=== PATIENT | female | born 1970 | race Caucasian/White ===

== ENCOUNTER 2017-06-10 09:45 | Observation (INO) | payer OTHER ==
--- NOTE | 2017-06-10 09:53 | CPEKG ---
Heart Rate: 65 RR Interval: 923 P-R Interval: 184 QRSD Interval: 78 QT Interval: 392 QTC Interval: 408 P [place]: 53 QRS [place]: 1 T Wave [place]: 33 EKG Severity - NORMAL ECG - EKG Impression: SINUS RHYTHM Electronically Signed By: Benigno Akers 10-Jun-2017 15:07:31
[2017-06-10] MEDS ORDERED: NS 500 ML IV ONE (09:54)
[2017-06-10] MEDS ORDERED: ASPIRIN 81 MG CHEWABLE TAB PO ONE (09:54)
[2017-06-10 10:22] LABS: PLATELET COUNT 264 10^3/uL (150-400)
--- NOTE | 2017-06-10 10:26 | EDPHY ---
H & P Time Seen by Provider: 06/10/17 09:52 HPI/ROS: HPI Chest pain. 47-year-old female by private vehicle with her . Her is an linux system administrator at the hospital. This patient has a history of hypertension. She has been taking Bystolic, 10 mg daily for this. She reports that she is still had a hard time controlling her blood pressure. She reports over the last 3 days she has had intermittent chest pain which she describes as an aching in her left upper chest which sometimes radiates up into the left jaw. She denies any associated shortness of breath. She and her have spoken with shingle weaver Dr. Marty Camarillo and Dr. Marcell Reyna who have been helping her with management of her hypertension. Recently her discussed her chest pain and there was a concern for a possible dissection process. I explained that we of course would consider this in our emergency department evaluation. I discussed getting a CT angiogram of her chest to evaluate for possible pulmonary embolism versus dissection process. They both endorse this plan. Her also tells me that she has been under a lot of stress this last month secondary to challenges with their son who is undergoing treatment for mental health issues. ROS: Constitutional: No fever, no chills. No weakness. Eyes: No discharge. No changes in vision. ENT: No sore throat. No nasal congestion or rhinorrhea. Respiratory: No cough. No shortness of breath. Cardiac: As above, no palpitations. Gastrointestinal: No abdominal pain, no vomiting, no diarrhea. Genitourinary: No hematuria. No dysuria or increased frequency with urination. Musculoskeletal: No back pain. No neck pain. No myalgias or arthralgias. Skin: No rashes. Neurological: No headache. No focal weakness or altered sensation. Past medical history: Hypertension, diskectomy, appendectomy. Social history: No smoking. Here with her . Drinks alcohol socially. Physical Exam: General Appearance: Alert, mildly anxious but no distress. This patient is responding to questions appropriately and in full sentences. This patient appears well-hydrated and well-nourished. Eyes: Pupils equal and round no pallor or injection. No lid edema, erythema or injection. Respiratory: There are no retractions, lungs are clear to auscultation with good air movement bilaterally. Cardiovascular: Regular rate and rhythm. No murmur. Gastrointestinal: Abdomen is soft and nontender, no masses, bowel sounds normal. No focal tenderness at McBurney's point. No Varma sign. Neurological: Motor sensory function is grossly intact. Cranial nerves are normal. Gait is normal. Skin: Warm and dry, no rashes. Musculoskeletal: Neck is supple and nontender. Extremities are symmetrical. No lower extremity edema. All joints range without pain or impingement. Psychiatric: No agitation. No depression. Database: EKG: EKG time is 950 a.m.; EKG shows a narrow complex normal sinus rhythm with a ventricular rate of 65. The WA, QRS, QT intervals are within normal limits. There are no ST-T wave changes indicative of ischemic or injury pattern. No evidence of right heart strain. Interpreted by me. Imaging: Chest x-ray AP portable; the cardiac mediastinal silhouette is unremarkable. No evidence of infiltrate or pneumothorax. No acute cardiopulmonary disease process noted. Interpreted by me. CT pulmonary angiogram; no evidence of pulmonary embolism or dissection process. Results were discussed with staff radiologist Dr. Dilip Tristan. Procedures: Emergency department course: Vital signs reviewed. She is moderately hypertensive. She was given 324 mg of chewed aspirin. As of 10:20 a.m., she currently denies any chest pain. EKG obtained and reviewed by myself. 11:05 a.m., patient re-evaluated. Resting comfortably at this time. No chest pain. Feeling much better. Results of emergency department workup discussed with and patient. CT angiogram of chest currently pending. Otherwise, this patient's workup has been unremarkable. Plan for PCU observation admission discussed. All of their questions were answered. They endorse. Hospitalist paged. 11:10 p.m., spoke with on-call hospitalist. Patient accepted for admission PCU observation. Patient's remaining emergency department course under my care uneventful. Patient admitted in stable and improved condition. 11:35 a.m., CT angiogram results discussed with patient and . Differential Diagnosis: The differential diagnosis on this patient includes but is not limited to acute coronary syndrome, pulmonary embolism, aortic dissection, esophageal spasm. This represents a partial list of diagnoses considered. These considerations are based on history, physical exam, past history, reassessment and diagnostic testing. Smoking Status: Never smoked Constitutional: Initial Vital Signs Temperature (C) 37 C 06/10/17 09:59 Heart Rate 66 06/10/17 09:59 Respiratory Rate 16 06/10/17 09:59 Blood Pressure 141/107 H 06/10/17 09:59 O2 Sat (%) 97 06/10/17 09:59 O2 Delivery Mode Room Air Allergies/Adverse Reactions: tree nut Allergy (Verified 06/10/17 12:08) Home Medications: Medication Instructions Recorded Estradiol [Estrace Vaginal (*)] 1 patti VG MWF@21 08/13/15 Componded Testosterone Crm 1 patti TP DAILY 06/10/17 Fluticasone Nasal [Flonase Nasal 1 sprays NASAL DAILY 06/10/17 [place] (RX)] Herbals/Supplements -Info Only 1 ea PO DAILY 06/10/17 Lisinopril [Zestril 20 mg (*)] 20 mg PO DAILY 06/10/17 Melatonin [Melatonin 3 MG (*)] 3 mg PO HS 06/10/17 Nebivolol HCl [Bystolic 5 mg (*)] 5 mg PO DAILY 06/10/17 Progesterone, Micronized 100 mg PO HS 06/10/17 [Progesterone] Medical Decision Making - Diagnostics Imaging Results: Imaging Impressions Chest X-Ray 06/10/17 09:55 Impression: Negative. Chest/Thorax CTA 06/10/17 10:39 Impression: 1. No acute findings in the chest. 2. Mild narrowing of the right subclavian vein. 3. Additional findings as above. Findings discussed with Benigno Akers MD on 06/10/2017 at 11:34. - Data Points Laboratory Results: Laboratory Results 06/10/17 09:55 06/10/17 09:55 06/10/17 06/10/17 06/10/17 09:55 09:55 09:55 WBC 5.92 10^3/uL 10^3/uL (3.80-9.50) RBC 4.41 10^6/uL 10^6/uL (4.18-5.33) Hgb 12.1 g/dL L g/dL (12.6-16.3) Hct 35.8 % L % (38.0-47.0) MCV 81.2 fL L fL (81.5-99.8) MCH 27.4 pg L pg (27.9-34.1) MCHC 33.8 g/dL g/dL (32.4-36.7) RDW 12.5 % % (11.5-15.2) Plt Count 264 10^3/uL 10^3/uL (150-400) MPV 9.0 fL fL (8.7-11.7) Neut % (Auto) 56.5 % % (39.3-74.2) Lymph % (Auto) 32.9 % % (15.0-45.0) [place] % (Auto) 6.9 % % (4.5-13.0) Eos % (Auto) 1.5 % % (0.6-7.6) Baso % (Auto) 1.7 % % (0.3-1.7) Nucleat RBC Rel Count 0.3 % H % (0.0-0.2) Absolute Neuts (auto) 3.34 10^3/uL 10^3/uL (1.70-6.50) Absolute Lymphs (auto) 1.95 10^3/uL 10^3/uL (1.00-3.00) Absolute Monos (auto) 0.41 10^3/uL 10^3/uL (0.30-0.80) Absolute Eos (auto) 0.09 10^3/uL 10^3/uL (0.03-0.40) Absolute Basos (auto) 0.10 10^3/uL 10^3/uL (0.02-0.10) Absolute Nucleated RBC 0.02 10^3/uL H 10^3/uL (0-0.01) Immature Gran % 0.5 % % (0.0-1.1) Immature Gran # 0.03 10^3/uL 10^3/uL (0.00-0.10) PT 13.0 SEC SEC (12.0-15.0) INR 0.96 (0.83-1.16) APTT 28.2 SEC SEC (23.0-38.0) Sodium 140 mEq/L mEq/L (135-145) Potassium 4.1 mEq/L mEq/L (3.5-5.2) Chloride 103 mEq/L mEq/L (97-110) Carbon Dioxide 26 mEq/l mEq/l (22-31) Anion Gap 11 mEq/L mEq/L (8-16) BUN 6 mg/dL L mg/dL (7-23) Creatinine 0.8 mg/dL mg/dL (0.6-1.0) Estimated GFR > 60 Glucose 93 mg/dL mg/dL (70-100) Calcium 9.8 mg/dL mg/dL (8.5-10.4) Creatine Kinase 35 IU/L IU/L (0-156) CK-MB (CK-2) Fraction 0.23 ng/mL ng/mL (0.00-3.19) Troponin I < 0.012 ng/mL ng/mL (0.000-0.034) Medications Given: Discontinued Medications Aspirin (Aspirin) 324 mg PO EDNOW ONE Stop: 06/10/17 09:55 Last Admin: 06/10/17 10:06 Dose: 324 mg Sodium Chloride (Ns) 500 mls @ 1,000 mls/hr IV EDNOW ONE PRN Reason: Protocol Stop: 06/10/17 10:23 Last Admin: 06/10/17 10:08 Dose: 500 mls Departure - Departure Disposition: [facility] Inpatient Acute Clinical Impression: Chest pain
[2017-06-10 10:29] LABS: INR 0.96 (0.83-1.16)
[2017-06-10 10:32] LABS: CREATINE KINASE 35 IU/L (0-156)
[2017-06-10] MEDS ORDERED: IOPAMIDOL (ISOVUE 370) 100 ML BTL IV ONE (10:52)
--- NOTE | 2017-06-10 11:57 | ASMTLACE ---
JUANY Acuity / Level of Answers: Yes Care: Did the patient have an inpatient admission? # of Emergency department Answers: 1-2 visits in the last 6 months Score: 4 Date Signed: 06/10/2017 11:56 AM Electronically Signed By:Keesha Carrington RN
[2017-06-10] MEDS ORDERED: ACETAMINOPHEN 325 MG TAB PO PRN (12:58)
[2017-06-10] MEDS ORDERED: ONDANSETRON DISINTEGRATING 4 MG TAB PO PRN (12:58)
[2017-06-10] MEDS ORDERED: ONDANSETRON 4 MG/2 ML VIAL IVP PRN (12:58)
--- NOTE | 2017-06-10 16:24 | GHP ---
[f rep st] HISTORY AND PHYSICAL DATE OF ADMISSION: 06/10/2017 CHIEF COMPLAINT: Chest pain. HISTORY OF PRESENT ILLNESS: This is a 47-year-old female with a history of hypertension. She has be en under a significant amount of stress lately and had to restart her Bystolic several weeks ago due to elevated blood pressure. She is having some issues with her son who is 13 years old. It has been particularly stressful the last several days and throughout the night and especially this morning. Patient developed left-sided chest pain which she describes as electric feeling with some radiation i nto the left arm and left jaw. She has not had pain like this before. She has had no shortness of b reath. No diaphoresis, nausea or vomiting. Pain is resolved currently. She has had a stress test a few years ago which was negative. She does not remember having an echocardiogram. She denies any o rthopnea, PND or lower extremity edema. No fevers or chills. REVIEW OF SYSTEMS: A 10-point review of systems was obtained, otherwise has been negative. PAST MEDICAL HISTORY: Hypertension. MEDICATIONS: Reviewed. SOCIAL HISTORY: No smoking. . Under a significant amount of stress. FAMILY HISTORY: Great grandfather had coronary disease. There is a history of atrial fibrillation a nd hypertension in the family. PHYSICAL EXAMINATION: VITAL SIGNS: Afebrile, blood pressure is 147/76, heart rate 66, oxygen satura tion 99% on room air. GENERAL: The patient is well developed, no apparent distress. HEENT: [place] bindu sclerae. Extraocular muscles intact. Moist mucous membranes. NECK: Supple. No thyromegaly. LUNGS: Good effort. Clear to auscultation bilaterally. CARDIOVASCULAR: Regular rate and rhythm. No murmurs, rubs, or gallops. ABDOMEN: Positive bowel sounds. Soft, nontender, nondistended. No h epatosplenomegaly. EXTREMITIES: No clubbing, cyanosis, or edema. SKIN: Without rash, warm, intact . NEUROLOGIC: Oriented x3. Moving all 4 extremities equally. PSYCHIATRIC: Normal affect. LABORATORY STUDIES: CBC is essentially normal. Troponins are negative x2. EKG personally reviewed and interpreted shows a normal sinus rhythm with no ischemic changes. CT scan of the chest shows no dissection or pulmonary embolism. ASSESSMENT: This is a 47-year-old female presenting with chest pain. 1. Chest pain, probably noncardiac. She is a relatively young age with minimal risk factors other t beckett hypertension which seems to be more stress induced. She does see the ornamental iron worker regularly and they will be consulting. I will get serial troponins, echocardiogram and will have Cardiology decide what type of stress testing they want. 2. Hypertension. Symptoms do not seem to correlate with elevated blood pressure. She was having a significant elevated blood pressure previously but no really chest pain. Her blood pressure is a lit tle bit uncontrolled but would not make any change with her medications currently. /[id number]/MODL
--- NOTE | 2017-06-10 16:25 | PDCARCONS ---
Cardiology Consult Reason for Consult: Chest pain Chief Complaint: Chest pain Requesting Physician: Hospitalist Team History of Present Illness: Patient is a 47 y/o female with about two years of HTN (on Bystolic and Lisinopril), who presented to [facility] ER this morning after left sided chest pains with radiation into shoulder, neck, and jaw were noted. No history of HLP, CAD , or DM. No tobacco use/abuse. Current symptoms have been noted for the past three days, with more severe presentation noted this morning. There is a degree of stress at home with 13 year old son (adopted at one year) with recent threats of suicide, and brief admission to inpatient center for about 10 days. Things did not go too well according to patient and with respect to this admission. No PND has been noted. Exercise has dropped off with an elevation in stress. Sleep has been very poor. Appetite has also been poor. Respiratory rate in the ER was up to 22 per minute. At present, the patient is resting comfortably in her room. at bedside. There has been work up for the hypertension noted (renal artery angiography), but no coronary angiography. Remainder of the 12 point review of systems was unremarkable History Information - Allergies/Home Medication List Allergies/Adverse Reactions: tree nut Allergy (Verified 06/10/17 12:08) Home Medications: Estradiol [Estrace Vaginal (*)] 1 patti VG MWF@21 08/13/15 [Last Taken 06/08/17] Componded Testosterone Crm 1 patti TP DAILY 06/10/17 [Last Taken 06/09/17] Fluticasone Nasal [Flonase Nasal [place] (RX)] 1 sprays NASAL DAILY 06/10/17 [ Last Taken 06/09/17] Herbals/Supplements -Info Only 1 ea PO DAILY 06/10/17 [Last Taken Unknown] Lisinopril [Zestril 20 mg (*)] 20 mg PO DAILY 06/10/17 [Last Taken 06/10/17] Melatonin [Melatonin 3 MG (*)] 3 mg PO HS 06/10/17 [Last Taken Unknown] Nebivolol HCl [Bystolic 5 mg (*)] 5 mg PO DAILY 06/10/17 [Last Taken 06/10/17] Progesterone, Micronized [Progesterone] 100 mg PO HS 06/10/17 [Last Taken ] I have personally reviewed and updated: family history, medical history, social history, surgical history Past Medical History: - Past Medical History hypertension - Surgical History Reports: no pertinent surgical hx - Family History Positive for: non-pertinent - Social History Smoking Status: Never smoked Alcohol Use: Rarely Drug Use: None Cardiac History - Cardiac History Cardiac Risk Factors: hypertension (>140/90) Timing/Duration: Days Severity: severe Severity Scale: 8 Location: substernal, epigastric, shoulder Activities at Onset: emotional stress Modifying Factors: improves with: lying down, rest Associated Symptoms: chest pain, loss of appetite IRIS Risk Evaluation age greater or equal to 65: no greater or equal to 3 CAD risk factors: no known CAD(stenosis greater or eqaul to 50%): no ASA use in past 7 days: no severe angina(greater or equal to 2 episodes in 24hrs): no EKG ST changes greater or equal to 0.5mm: no positive cardiac marker: no Total Score: 0 IRIS Score: 4.7% risk Physical Exam Physical Exam: Temp Pulse Resp BP Pulse Ox 36.5 C 66 16 147/76 H 99 06/10/17 12:24 06/10/17 12:24 06/10/17 12:24 06/10/17 12:24 06/10/17 12:24 Constitutional: no apparent distress, appears nourished, not in pain Eyes: PERRL Ears, Nose, Mouth, Throat: moist mucous membranes, hearing normal, ears appear normal Cardiovascular: regular rate and rhythym, no murmur, rub, or gallop, pulses symmetric bilaterally, No JVD Peripheral Pulses: 2+: dorsalis-pedis (R), dorsalis-pedis (L) Respiratory: no respiratory distress, no rales or rhonchi, clear to auscultation Gastrointestinal: normoactive bowel sounds Skin: warm, No rash Musculoskeletal: full muscle strength Neurologic: AAOx3, sensation intact bilaterally, CN II-XII Intact Psychiatric: interacting appropriately, not anxious, not encephalopathic Lab and Imaging 06/10/17 09:55 06/10/17 09:55 WBC 5.92 10^3/uL (3.80-9.50) 06/10/17 09:55 RBC 4.41 10^6/uL (4.18-5.33) 06/10/17 09:55 Hgb 12.1 g/dL (12.6-16.3) L 06/10/17 09:55 Hct 35.8 % (38.0-47.0) L 06/10/17 09:55 MCV 81.2 fL (81.5-99.8) L 06/10/17 09:55 MCH 27.4 pg (27.9-34.1) L 06/10/17 09:55 MCHC 33.8 g/dL (32.4-36.7) 06/10/17 09:55 RDW 12.5 % (11.5-15.2) 06/10/17 09:55 Plt Count 264 10^3/uL (150-400) 06/10/17 09:55 MPV 9.0 fL (8.7-11.7) 06/10/17 09:55 Neut % (Auto) 56.5 % (39.3-74.2) 06/10/17 09:55 Lymph % (Auto) 32.9 % (15.0-45.0) 06/10/17 09:55 [place] % (Auto) 6.9 % (4.5-13.0) 06/10/17 09:55 Eos % (Auto) 1.5 % (0.6-7.6) 06/10/17 09:55 Baso % (Auto) 1.7 % (0.3-1.7) 06/10/17 09:55 Nucleat RBC Rel Count 0.3 % (0.0-0.2) H 06/10/17 09:55 Absolute Neuts (auto) 3.34 10^3/uL (1.70-6.50) 06/10/17 09:55 Absolute Lymphs (auto) 1.95 10^3/uL (1.00-3.00) 06/10/17 09:55 Absolute Monos (auto) 0.41 10^3/uL (0.30-0.80) 06/10/17 09:55 Absolute Eos (auto) 0.09 10^3/uL (0.03-0.40) 06/10/17 09:55 Absolute Basos (auto) 0.10 10^3/uL (0.02-0.10) 06/10/17 09:55 Absolute Nucleated RBC 0.02 10^3/uL (0-0.01) H 06/10/17 09:55 Immature Gran % 0.5 % (0.0-1.1) 06/10/17 09:55 Immature Gran # 0.03 10^3/uL (0.00-0.10) 06/10/17 09:55 PT 13.0 SEC (12.0-15.0) 06/10/17 09:55 INR 0.96 (0.83-1.16) 06/10/17 09:55 APTT 28.2 SEC (23.0-38.0) 06/10/17 09:55 Sodium 140 mEq/L (135-145) 06/10/17 09:55 Potassium 4.1 mEq/L (3.5-5.2) 06/10/17 09:55 Chloride 103 mEq/L (97-110) 06/10/17 09:55 Carbon Dioxide 26 mEq/l (22-31) 06/10/17 09:55 Anion Gap 11 mEq/L (8-16) 06/10/17 09:55 BUN 6 mg/dL (7-23) L 06/10/17 09:55 Creatinine 0.8 mg/dL (0.6-1.0) 06/10/17 09:55 Estimated GFR > 60 06/10/17 09:55 Glucose 93 mg/dL (70-100) 06/10/17 09:55 Calcium 9.8 mg/dL (8.5-10.4) 06/10/17 09:55 Creatine Kinase 35 IU/L (0-156) 06/10/17 09:55 CK-MB (CK-2) Fraction 0.23 ng/mL (0.00-3.19) 06/10/17 09:55 Troponin I < 0.012 ng/mL (0.000-0.034) 06/10/17 15:00 Visualized and Interpreted Chest x-ray results: Yes Chest X-ray Interpretation: normal Visualized and Interpreted EKG results: Yes EKG Interpretation: Positive for: normal sinsus rhythm Telemetry: normal sinus rhythm Echocardiogram: normal LVEF, normal wall motion, normal chamber dimensions, no valve pathology A/P Assessment: Patient is a 47 y/o female with known elevation in blood pressure (on bystolic and lisinopril) with complaints of chest pains and associated symptoms. Echocardiogram at bedside without valve pathology noted. Cardiac enzymes (two sets) without elevation noted. ECG without ST/T wave elevation or depression. Suspect that large portion of HTN and the symptoms noted are secondary to severe stressors at home with son. Plan: Would continue therapy on Bystolic and Lisinopril and add lower dose of Spironolactone (25 mg) Cycle a third troponin later today or tomorrow morning. AM ECG should also be performed. Consideration for resumption of regular and routine exercise. Currently no indications for further invasive cardiovascular testing. Would consider - if symptoms continue and there are "non specific" ECG changes, the use of non invasive cardiovascular stress testing, but risk profile is quite low at present. If this alleviates some degree of anxiety given the symptoms noted, would consider this testing.
[2017-06-10 16:49] VITALS: RESP 16
--- NOTE | 2017-06-10 17:11 | ECHO ---
[email or web address] [address] [address] Main: [phone] Fax: [email or web address] Echocardiogram Name: KATELIN TYLER MR#: [id number] Study Date: 06/10/2017 Study Time: 02:36 PM Date of : 1970 Age: 47 year(s) Height: 165.1 cm (65 in.) Weight: 58.97 kg (130 lb.) BSA: 1.65 m2 Gender: Female Examination: Echo Indication: Chest Pain Image Quality: Contrast: Requested by: Isiah Robles BP: 147 mmHg/76 mmHg Heart Rate: Rhythm: Indication: Chest Pain Procedure Staff Pencil Maker: Amanda Corado [facility] Reading Physician: Marty Zhang Requesting Provider: Conclusions: Normal size left ventricle. No LV hypertrophy. Normal global systolic LV function. The ejection fraction is estimated to be 65-70 %. No regional wall motion abnormality. Normal size right ventricle. The left atrium is normal in size. The right atrium is normal in size. Trivial mitral valve regurgitation. The aortic valve is normal in appearance and function. Trivial tricuspid valve regurgitation. The aorta is normal. No pericardial effusion. Measurements: Chambers Valvular Assessment AV/MV Valvular Assessment TV/PV Normal Normal Normal Name Value Range Name Value Range Name Value Range Ao Hans[place] (MM): 3.2 cm (2.2 cm-3.7 AV meanP mmHg ( - ) cm) MV E Vmax: 0.86 m/s ( - ) IVSd (2D): 0.7 cm (0.6 cm-1.1 MV A Vmax: 0.66 m/s ( - ) cm) MV E/A: 1.30 ( - ) LVDd (2D): 4.7 cm (3.9 cm-5.3 cm) LVDs (2D): 2.4 cm (2.1 cm-4 cm) LVPWd (2D): 0.6 cm ( - ) LVEF (MOD4): 69 % (>=55 %) EF Range: 65-70 % Patient: KATELIN TYLER Study Date: 06/10/2017 Page 1 of 2 02:36 PM Continued Measurements: Chambers Valvular Assessment AV/MV Name Value Name Value LADs: 2.9 cm MV E/E' Septal: 10.80 LADs Lon.3 cm MV E/E' Lateral: 7.80 LA Area: 13.8 cm2 Findings: Left Ventricle: Normal size left ventricle. No LV hypertrophy. Normal global systolic LV function. The ejection fraction is estimated to be 65-70 %. No regional wall motion abnormality. Right Ventricle: Normal size right ventricle. Left Atrium: The left atrium is normal in size. Right Atrium: The right atrium is normal in size. Mitral Valve: The mitral valve is normal in appearance and function. Trivial mitral valve regurgitation. Aortic Valve: The aortic valve is normal in appearance and function. Tricuspid Valve: The tricuspid valve is normal in appearance and function. Trivial tricuspid valve regurgitation. Pulmonic Valve: Pulmonary valve not well visualized. Aorta: The aorta is normal. Pericardium: No pericardial effusion. There is pericardial fat. (No Signature Object) Patient: KATELIN TYLER Study Date: 06/10/2017 Page 2 of 2 02:36 PM [id number]
[2017-06-10] MEDS ORDERED: TEMAZEPAM 15 MG CAP PO PRN (17:36)
[2017-06-10] MEDS ORDERED: KETOROLAC 30 MG/1 ML SDV IVP PRN (17:37)
[2017-06-10] MEDS ORDERED: PROGESTERONE,MICR 100 MG CAP PO SCH (21:00)
[2017-06-10] MEDS ORDERED: MELATONIN 3 MG TAB PO SCH (21:00)
[2017-06-11 07:07] VITALS: BP 118/84; PULSE 72; TEMP 98.9; O2SAT 96
[2017-06-11] MEDS ORDERED: TESTOSTERONE TP SCH (09:00)
[2017-06-11] MEDS ORDERED: FLUTICASONE NASAL 120 SPRAYS/16 GM MDI EACHNARE SCH (09:00)
[2017-06-11] MEDS ORDERED: LISINOPRIL 20 MG TAB PO SCH (09:00)
[2017-06-11] MEDS: NEBIVOLOL HCL 5 MG TAB PO SCH ×2 (09:02→12:35)
--- NOTE | 2017-06-11 10:53 | CPEKG ---
Heart Rate: 76 RR Interval: 789 P-R Interval: 184 QRSD Interval: 78 QT Interval: 376 QTC Interval: 423 P [place]: 68 QRS [place]: 24 T Wave [place]: 49 EKG Severity - NORMAL ECG - EKG Impression: SINUS RHYTHM Electronically Signed By: Ac Mcclain 11-Jun-2017 17:46:06
--- NOTE | 2017-06-11 11:04 | PDCARPN ---
Cardiology Progress Note Chief Complaint: No cardiovascular complaints this morning, but mild chest pains were noted last night. Assessment/Plan: Assessment: 06-11-17 No cardiovascular complaints today. Echocardiography yesterday with normal wall motion. Normal chamber dimensions. Normal valve morphology. Cardiac biomarkers without elevation noted (four samples). 06-10-17 Patient is a 47 y/o female with about two years of HTN (on Bystolic and Lisinopril), who presented to [facility] ER this morning after left sided chest pains with radiation into shoulder, neck, and jaw were noted. No history of HLP, CAD , or DM. No tobacco use/abuse. Current symptoms have been noted for the past three days, with more severe presentation noted this morning. There is a degree of stress at home with 13 year old son (adopted at one year) with recent threats of suicide, and brief admission to inpatient center for about 10 days. Things did not go too well according to patient and with respect to this admission. No PND has been noted. Exercise has dropped off with an elevation in stress. Sleep has been very poor. Appetite has also been poor. Respiratory rate in the ER was up to 22 per minute. At present, the patient is resting comfortably in her room. at bedside. There has been work up for the hypertension noted (renal artery angiography), but no coronary angiography. Plan: (1) Discharge patient to home (2) Maintain therapy on antihypertensive therapy as at present with Bystolic and Zestril (3) Of more concern is the degree of stress that is noted - uncertain how much this has influence the elevation in blood pressures noted , but likely has some causation. (4) Outpatient follow up with cardiology in <7 days for reassessment of blood pressure is recommended. Subjective: No cardiovascular complaints. Reviewed/Discussed With: hospitalist, multidisciplinary team Objective: Vital Signs (8 Hrs) Temp Pulse Resp BP Pulse Ox 06/11/17 07:06 37.2 C 72 16 118/84 H 96 06/11/17 04:00 37.1 C 68 16 123/85 H 94 Intake/Output (24 Hrs) 06/10/17 06/11/17 06/12/17 05:59 05:59 05:59 Intake Total 600 Balance 600 Intake: Oral (ml) 600 Other: Weight 58.9 kg Intake Quantity Yes Sufficient Number of Voids Toilet 1 Result Diagrams: 06/10/17 09:55 06/10/17 09:55 Cardiac Labs: Cardiac Lab Results (72 Hrs) 06/11/17 06/10/17 06/10/17 03:14 18:21 15:00 Troponin I < 0.012 < 0.012 < 0.012 Telemetry: Normal sinus rhythm Echocardiogram: normal wall motion, normal LVEF, normal chamber dimensions, and normal muscle thickness. - Physical Exam Constitutional: WDWN, healthy appearing, no apparent distress Eyes: PERRL, EOMI Ears, Nose, Mouth, Throat: moist mucous membranes Cardiovascular: regular rate and rhythm, no murmurs, no rubs, no gallops Peripheral Pulses: 2+: dorsalis-pedis (R), dorsalis-pedis (L) Respiratory: clear to auscultate bilat, no crackles, no wheezes Gastrointestinal: normoactive bowel sounds Skin: no edema Musculoskeletal: no muscular tenderness Neurologic: AAOx3, CN II-XII grossly intact Psychiatric: cooperative, interactive, following commands ICD10 Worksheet Patient Problems: Problems Problem Status Onset Chest pain Acute
[2017-06-11] MEDS ORDERED: SPIRONOLACTONE 25 MG TAB PO SCH (11:15)
== END 2017-06-11 13:10 | disposition home or self-care (01) ==
LOC: F2W 12:20
PROVIDERS: ADMIT Internal Medicine; ATTEND Internal Medicine
DX: R07.9 Chest pain, unspecified (principal); I10 Essential (primary) hypertension; E86.9 Volume depletion, unspecified; Z82.49 Family history of ischemic heart disease and other diseases of the circulatory system
CPT/HCPCS: 71045; 71275; 93005; 93306; 99285; G0378; J1885; Q9967

== ENCOUNTER → 2017-06-16 | Outpatient (CLI) | payer OTHER | LOC: FIMAGING 12:42 | PROVIDERS: ATTEND Obstetrics & Gynecology Gynecology | DX: Z12.31 Encounter for screening mammogram for malignant neoplasm of breast (principal) ==